=== PATIENT | female | born 1950 | race Caucasian/White ===

== ENCOUNTER → 2017-04-10 | Outpatient (CLI) | payer MEDICARE, BC ==
[~2017-04-10] MED LIST: ASPIRIN81 M2 PO; CRESTOR10 MG PO; FENOFIBRATE67 MG PO; STOOL SOFTENER1 EAC1 PO; VITAMIN D31000 UNI1 PO
--- NOTE | ~2017-04-10 | CR124 ---
[facility]. [facility] A Service of [facility] RADIOLOGY TEXT RESULTS PATIENT: ZULEIKA MALLORY [facility] : 48 UNIT #: [id number] AGE: [address]: Yamile Jauregui MD SEX: F ORDER DR: [id number] [address] [address] [id number] O MR#: [id number] Acc #: [id number] NAME: ZULEIKA MALLORY : 1950 SEX: F STUDY DATE/TIME: 04/10/2017 13:48 UNIT: [facility] ROOM: STUDY DESCRIPTION: CR Foot 2 Views Rt Attending Physician: Yamile Jauregui M.D. Referring Physician: Yamile Jauregui M.D. Ordering Physician: Yamile Jauregui M.D. Primary Care Physician: Yamile Jauregui M.D. MEDICAL IMAGING REPORT This report is preliminary unless electronic signature is present. EXAM Right foot, 2 views INDICATIONS Right foot pain for 2 weeks. No comparisons. FINDINGS Hallux valgus deformity. Degenerative change at the first MTP joint. No evidence for fracture. No dislocation. IMPRESSION Hallux valgus deformity, otherwise, unremarkable. Dictated by... Steve Vaughn M.D. THIS IS AN ELECTRONICALLY VERIFIED REPORT Steve Vaughn M.D. at 04/11/2017 10:01 AM ARS/giselle TD: 04/11/2017 01:57 JOB #: [id number] MEDICAL IMAGING REPORT Page 1 of 1
== END | disposition home or self-care (01) ==
LOC: SRAD 13:42
DX: M79.671 Pain in right foot (principal); M20.11 Hallux valgus (acquired), right foot
CPT/HCPCS: 73620